=== PATIENT | female | born 1990 | race Caucasian/White ===

== ENCOUNTER 2025-04-25 11:54 | Emergency (ER) | payer MEDICAID, OTHER ==
[~2025-04-25] VITALS: Ht 162.6 cm; Wt 88.1 kg
[~2025-04-25 11:54] MED LIST: ONDA-243 PO
[2025-04-25 12:00] VITALS: BP 120/83; PULSE 100; TEMP 98.3; O2SAT 97
--- NOTE | 2025-04-25 12:14 | Physician Documentation ---
History of Present Illness ~ Chief Complaint: Sore Throat Stated Complaint: SORE THROAT Time Seen by MD: 12:14 Primary Medical Doctor: OUT OF TOWN Medication Reconciliation Allergies: Coded Allergies: amoxicillin (Unverified Allergy, Unknown, 04/25/25) Scheduled PRN ONDANSETRON ODT 4mg tablet (Ondansetron Odt), 1 TABLET PO Q8H PRN for NAUSEA Past Medical History Past Medical History: *ENDOCRINE*, Fibromyalgia Review of Systems ROS As stated above in the HPI, otherwise all systems are reviewed and negative. Physical Exam Vital Signs: Temperature: 98.3, Source: Temporal, Heart Rate: 100, Respiratory Rate: 14, BP: 120/83, Pulse Oximetry: 97, Weight: 88.100 Oxygen Flow Rate: 0 Physical Exam General: Alert, no apparent distress. HEENT: PERRL, EOMI, no injection, moist mucous membranes. 2+ erythematous tonsils. (+) exudate. Uvula midline posterior. No evidence of cheko-tonsillar abscess. Normal TMs bilat. Neck: Full range of motion. Mildly enlarged anterior lymph nodes bilat. Respiratory: Lungs clear, no respiratory distress. Chest: No accessory muscle use. Cardiovascular: Regular rate and rhythm, no murmurs. Gastrointestinal: Soft, nontender, nondistended. Bowels sounds present. Extremities: Normal range of motion, no deformity. Neurologic: Oriented x4. Psychiatric: Normal mood and affect. Skin: Normal color, warm and dry. No edema, no ecchymosis. Progress Results/Orders Results/Orders Vital Signs 04/25/25 12:00 Temp 98.3 Pulse 100 Resp 14 B/P (MAP) 120/83 Pulse Ox 97 O2 Flow Rate 0 Medical Decision Making Additional Comment 34-year-old female with a history of two days of sore throat. Notes a history of strep, reports that this feels exactly the same. No upper respiratory infection symptoms. Allergic to amoxicillin, but she reports that her reaction is nausea and vomiting. Discussed that cefdinir is appropriate given the absence of anaphylactic symptoms. Discussed the need to take the full 10 day course of antibiotics. Discussed the need to return if worse. Departure Time of Disposition: 12:20 Disposition: 01 HOME / SELF CARE / HOMELESS Impression: Primary Impression: Acute pharyngitis Qualified Codes: J02.9 - Acute pharyngitis, unspecified Discharge Instructions: Sore Throat Additional Instructions: Were not tested for strep throat but given the absence of upper respiratory symptoms in the presence of fever, posterior pharyngeal redness with swollen exudative tonsils, you are suspected to have strep. Complete the full course of antibiotics. Change your toothbrush after 24 hrs. See the provided work note. Plenty of fluids, rest, Ibuprofen and acetaminophen per label instructions for pain. Return if worse. Referrals: NO PRIMARY CARE PROVIDER (PCP) Prescriptions Cefdinir (CEFDINIR) 300 Mg Capsule 2 CAP PO DAILY for 10 Days, #20 CAP 0 Refills Prov: JAYDEN CHONG NP 04/25/25 Education Educated: Patient, Family Educated regarding: diagnosis, treatment, prognosis, need for follow up Signature Scribe Signature: no scribe Attestation: The note accurately reflects work and decisions made by me.Jayden Rolon NP 04/25/25 12:22 JAYDEN CHONG NP Apr 25, 2025 12:14
[2025-04-25] MEDS ORDERED: CEFD300C3 PO (12:22)
[2025-04-25 12:29] VITALS: RESP 16
[2025-04-25] MEDS: ketorolac trometh 30MG/ML vial 30 MG/ML VIAL IM ONE (12:29)
== END 2025-04-25 12:30 | disposition home or self-care (01) ==
LOC: ER 11:55
DX: J02.9 Acute pharyngitis, unspecified (principal); M79.7 Fibromyalgia; Z88.0 Allergy status to penicillin
CPT/HCPCS: 96372; 99283; J1885

== ENCOUNTER 2025-08-19 15:06 | Emergency (ER) | payer MEDICAID ==
[~2025-08-19] VITALS: Ht 162.6 cm; Wt 91.2 kg
[~2025-08-19 15:06] MED LIST changes: +CEFD300C3 PO
[2025-08-19 15:13] VITALS: TEMP 98.4
--- NOTE | 2025-08-19 16:01 | Physician Documentation ---
History of Present Illness ~ Chief Complaint: See Chief Complaint Stated Complaint: MISCARRIAGE RECHECK Time Seen by MD: 17:00 Primary Medical Doctor: OUT OF TOWN HPI This is a 35-year-old female who presents with nausea and diarrhea for the past several days, patient reports that she recently had a miscarriage though is not currently bleeding and reports no abdominal pain or cramping. Patient reports no vomiting and reports no blood in stools. Medication Reconciliation Allergies: Coded Allergies: amoxicillin (Unverified Allergy, Unknown, 08/19/25) Scheduled Cefdinir (Cefdinir), 2 CAP PO DAILY Scheduled PRN ONDANSETRON ODT 4mg tablet (Ondansetron Odt), 1 TABLET PO Q8H PRN for NAUSEA Past Medical History Past Medical History: *ENDOCRINE*, Fibromyalgia Review of Systems ROS As stated above in the HPI, otherwise all systems are reviewed and negative. Physical Exam Vital Signs: Temperature: 98.4, Source: Temporal, Heart Rate: 93, Respiratory Rate: 16, BP: 149/93, Pulse Oximetry: 98, Weight: 91.200 Oxygen Flow Rate: 0 Physical Exam VITALS: Reviewed and as above. GENERAL: Alert, nontoxic appearing, no apparent distress. HEENT: RESPIRATORY: No increased work of breathing, no respiratory distress, speaking in full clear sentences CHEST: CV: BACK: GI: MUSCULOSKELETAL: SKIN: NEURO: PSYCH: General Appearance: alert, WD/WN, mild distress EENT: PERRL/EOMI Gastrointestinal: other (Suprapubic discomfort) Neurologic: oriented x4 Psychiatric: normal mood/affect Skin: normal color Progress Results/Orders Results/Orders Orders - MARIAH JIMENEZ PAC US OB (08/19/25 ) Completed Orders - MARIAH JIMENEZ PAC US OB (08/19/25 ) Vital Signs 08/19/25 15:13 Temp 98.4 Pulse 93 Resp 16 B/P (MAP) 149/93 Pulse Ox 98 O2 Flow Rate 0 Laboratory Tests Test 08/19/25 15:12 08/19/25 15:58 Urine Specimen Description Cln catch midstream Urine Color Straw Urine Clarity Clear Urine pH 6.5 Urine Specific Spring 1.010 Urine Protein Negative Urine Glucose (UA) Negative Urine Ketones Negative Urine Occult Blood Negative Urine Nitrite Negative Urine Bilirubin Negative Urine Urobilinogen 0.2 Urine Leukocyte Esterase Negative Urine Culture Indicated Not ind Volume Urine Centrifuged 10 ml Urine HCG, Qualitative Negative Urine Comment White Blood Count 10.7 Red Blood Count 4.54 Hemoglobin 13.7 Hematocrit 39.5 Mean Corpuscular Volume 87.0 Mean Corpuscular Hemoglobin 30.1 Mean Corpuscular Hemoglobin Concent 34.6 Red Cell Distribution Width 13.6 Platelet Count 310 Mean Platelet Volume 7.8 Neutrophils (%) (Auto) 68.9 Lymphocytes (%) (Auto) 23.0 Monocytes (%) (Auto) 5.4 Eosinophils (%) (Auto) 2.4 Basophils (%) (Auto) 0.3 Neutrophils # (Auto) 7.4 Lymphocytes # (Auto) 2.5 Monocytes # (Auto) 0.6 Eosinophils # (Auto) 0.3 Basophils # (Auto) 0.0 CBC Comment Sodium Level 139 Potassium Level 4.4 Chloride Level 103 Carbon Dioxide Level 29.7 Anion Gap 6 L Blood Urea Nitrogen 10 Creatinine 0.68 Estimated GFR/1.73 m2 > 90 BUN/Creatinine Ratio 14.7 Glucose Level 105 H Calcium Level 9.1 Total Bilirubin 0.3 Aspartate Amino Transf (AST/SGOT) 20 Alanine Aminotransferase (ALT/SGPT) 33 Alkaline Phosphatase 96 Total Protein 7.9 Albumin 3.6 Globulin 4.3 Albumin/Globulin Ratio 0.8 L Lipase 27 Thyroid Stimulating Hormone (TSH) 3.80 Chemistry Comments Medical Decision Making Findings MSE performed in triage and patient returned to ED lobby by nursing staff to await available ED room Additional Comments 35-year-old female with vague B symptoms since having a miscarriage referred to the emergency department for evaluation. Laboratory screening reassuring we will obtain ultrasound imaging to evaluate for Endometritis. Additionally we will evaluate TSH as patient has subclinical hypothyroidism. She is nontoxic appearing and awaits re-evaluation and disposition. Patient reassessed after ultrasound imaging which is reassuring for no retained products of conception. Labs reviewed with the patient's. Primary care follow up recommended. Patient is safe for stable discharge. Departure Disposition: HOME / SELF CARE / HOMELESS Impression: Primary Impression: Nausea Additional Impression: No retained products of conception Condition: Stable Additional Instructions: Tonight in the emergency department you had labs and ultrasound imaging obtained. Ultrasound imaging and labs are reassuring. Please make follow up appointment with your primary care physician to review tonight's diagnostic test and consideration of [facility] referral. Thank you for visiting [facility]. Referrals: NO PRIMARY CARE PROVIDER (PCP) Education Educated: Patient Educated regarding: diagnosis, treatment, prognosis, need for follow up Signature Scribe Signature: N/A Attestation: N/A ERNESTO MEIER Aug 19, 2025 16:01 MARIAH JIMENEZ Aug 19, 2025 17:35 DHARA SANZ MD Aug 19, 2025 18:21
[2025-08-19 16:08] LABS: URINE HCG NEGATIVE (NEG)
[2025-08-19 16:11] LABS: LEUKOCYTE ESTERASE ,URINE NEGATIVE (Neg); NITRITES, URINE NEGATIVE (Neg); OCCULT BLOOD,URINE NEGATIVE (Neg)
[2025-08-19 16:19] LABS: UA COLLECTION TYPE CLN CATCH MIDSTREAM
[2025-08-19 16:36] LABS: MEAN PLATELET VOLUME 7.8 FL (7.4-10.4); RED CELL DISTRIBUTION WIDTH 13.6 % (11.5-14.5)
[2025-08-19 17:09] LABS: CREATININE 0.68 MG/DL (0.40-0.90); TOTAL CARBON DIOXIDE 29.7 MMOL/L (24-32); eCRCL 100 ML/MIN; eGFR > 90 ML/MIN
--- NOTE | 2025-08-19 18:26 | RADIOLOGY REPORT ---
Technique: Real-time ultrasound images through the pelvis using a transabdominal transducer. For better evaluation of the ovaries and endometrial stripe, an endovaginal transducer was used. Indication: RPOC Comparison: None Findings: The uterus measures 8 cm. The endometrial stripe measures 14 mm. No gestational sac visualized. Heterogeneous appearance of the endometrium. Small amount of free pelvic fluid. Right ovary measures 3 x 1.9 x 2.1 cm. Normal flow on color doppler images. Right ovarian cysts measuring 1.1 x 1.2 cm. Left ovary measures 2.4 x 2.1 x 2 cm. Normal flow on color doppler images. No focal masses are identified. There is no significant free fluid in the pelvis. Impression: No gestational sac visualized. Endometrial thickness of 14 mm with heterogeneous appearance could represent passing products conception /retained products conception. Recommend follow-up ultrasound and beta HCG correlation. Small amount of free pelvic fluid. 1.2 cm right ovarian cyst.
[2025-08-19 18:47] VITALS: BP 133/98; PULSE 87; RESP 15; O2SAT 99
== END 2025-08-19 18:48 | disposition home or self-care (01) ==
LOC: ER 15:08
DX: O03.9 Complete or unspecified spontaneous abortion without complication (principal); Z79.899 Other long term (current) drug therapy; M79.7 Fibromyalgia; Z3A.00 Weeks of gestation of pregnancy not specified; Z88.0 Allergy status to penicillin
CPT/HCPCS: 36415; 76801; 80053; 81003; 81025; 83690; 84443; 85025; 99284